=== PATIENT | male | born 2000 | race Caucasian/White ===

== ENCOUNTER 2025-07-24 15:35 | Emergency (ER) | payer SELFPAY ==
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
[2025-07-24] MEDS: ADACEL 0.5 ML IM (16:14)
== END 2025-07-24 16:28 | disposition home or self-care (01) ==
LOC: EMR 15:35
PROVIDERS: EMERGENCY PHYSICIAN Emergency Medicine; FAMILY PHYSICIAN Family Medicine
DX: S01.81XA Laceration without foreign body of other part of head, initial encounter (principal); W22.8XXA Striking against or struck by other objects, initial encounter; F17.200 Nicotine dependence, unspecified, uncomplicated; Z23 Encounter for immunization
CPT/HCPCS: 99282; 12011; 90471; 90715